=== PATIENT | female | born 1970 | race Caucasian/White ===

== ENCOUNTER 2018-03-20 16:19 | Emergency (ER) | payer MEDICARE, MEDICAID ==
[~2018-03-20] VITALS: Ht 165.1 cm; Wt 63.6 kg
[~2018-03-20 16:19] MED LIST: FLUO20CA39 PO
[2018-03-20] MEDS ORDERED: IBUP-1985 PO (16:55)
[2018-03-20] MEDS ORDERED: ketorolac tromethamine 15mg/ml inj. IM ONE (16:55)
[2018-03-20] MEDS ORDERED: HYDROcodone/acetaminophen 5mg/325mg tablet PO ONE (16:55)
[2018-03-20] MEDS ORDERED: METH4TAB3 PO (16:55)
[2018-03-20 17:16] VITALS: BP 136/76
== END 2018-03-20 17:18 | disposition home or self-care (01) ==
LOC: ER 16:19
DX: R68.84 Jaw pain (principal); J02.9 Acute pharyngitis, unspecified; J44.9 Chronic obstructive pulmonary disease, unspecified; G89.29 Other chronic pain; Z98.890 Other specified postprocedural states; Z88.5 Allergy status to narcotic agent; Z88.0 Allergy status to penicillin; Z79.899 Other long term (current) drug therapy
CPT/HCPCS: 96372; 99283; J1885